=== PATIENT | male | born 2000 | race Caucasian/White ===

== ENCOUNTER 2021-08-16 10:39 | Emergency (ER) | payer OTHER ==
[~2021-08-16] VITALS: Ht 175.3 cm; Wt 123.0 kg
[~2021-08-16 10:39] MED LIST: ATEN50TA PO; LEVO25TA4 PO
[2021-08-16] MEDS ORDERED: KETOROLAC 15 MG/ML VIAL. IVP ONE (11:30)
[2021-08-16] MEDS ORDERED: IOHEXOL 300 MG/ML 75 ML VIAL. IV ONE (11:30)
[2021-08-16] MEDS ORDERED: CONTRAST GIVEN. MC PRN (11:30)
--- NOTE | 2021-08-16 11:33 | PHYS DOC ---
Past History Past Medical History: Other Past Surgical History: No Surgical History Smoking: Non-smoker Alcohol Use: None Drug Use: None General Adult EDM: Chief Complaint: RIB PAIN HPI: HPI: Patient is a 21-year-old male coming in for right flank pain. Patient states the pain was there when he woke up 2 days ago. Denies any strenuous activities, trauma, falls or heavy lifting. Patient states the pain is worse with movement and palpation. Denies any vomiting, urinary complaints, fevers, or cough. Denies any abdominal surgical history. Review of Systems: Review of Systems: All other systems within normal limits except for as noted in the HPI Current Medications: Current Meds: Current Medications Medications (Trade) Dose Ordered Sig/Derrell Start Time Stop Time Status Last Admin Dose Admin Info (Do NOT chart on this entry -- for MONITORING) 1 each PRN DAILY PRN 08/16/21 11:30 08/18/21 11:29 Iohexol (Omnipaque 300 Mg/ml) 75 ml 1X ONCE 08/16/21 11:30 08/16/21 11:31 Allergies: Allergies: Allergies Coded Allergies Type Severity Reaction Last Updated Verified No Known Drug Allergies 12/27/15 No Physical Exam: PE: Constitutional: Well developed, well nourished, no acute distress, non-toxic appearance. [] HENT: Normocephalic, atraumatic, bilateral external ears normal, nose normal. [] Eyes: PERRLA, conjunctiva normal, no discharge. [] Neck: No rigidity, supple, no stridor. [] Cardiovascular: Regular rate and rhythm, brisk cap refill [] Lungs & Thorax: Non labored symmetric respirations, no tachypnea or respiratory distress [] Abdomen: Soft, nondistended, right upper quadrant tenderness and positive Cisneros sign Skin: Warm, dry, no erythema, no rash. [] Back: Unremarkable, no CVA tenderness Extremities: No deformities, range of motion grossly intact, no lower extremity edema [] Neurologic: Alert and oriented X 3, no focal deficits noted. [] Psychologic: Affect normal, judgement normal, mood normal. [] EKG: EKG: [] Radiology/Procedures: Radiology/Procedures: [address] [address] IMAGING REPORT Signed PATIENT: OSBALDO HALL ACCOUNT: [id number] : 2000 LOCATION: ER AGE: 21 SEX: M EXAM STATUS: REG ER ORD. PHYSICIAN: LILLIANA RAMIREZ MD REASON: RUQ pain PROCEDURE: CT ABD PELV W/ IV CONTRST ONLY Study: CT abdomen/pelvis with intravenous contrast Indication: Right upper quadrant pain. Comparison: None. Technique: Helical CT imaging performed of the abdomen and pelvis after the intravenous administration of 75 cc contrast. Sagittal and coronal reformats were obtained. One or more of the following individualized dose reduction techniques were utilized for this examination: 1. Automated exposure control 2. Adjustment of the mA and/or kV according to patient size 3. Use of iterative reconstruction technique. Findings: No significant finding at the lower chest. Within normal limits liver, gallbladder, biliary tree, pancreas and adrenal glands. Mild enlargement of the spleen measuring 15.3 cm longitudinal. Symmetric renal parenchymal enhancement. No stone or hydronephrosis. Unremarkable bladder considering incomplete distention. The prostate is normal in size. Unremarkable colon and appendix. No pathologic dilatation of small bowel. Within normal limits stomach. Nonaneurysmal abdominal aorta. No lymphadenopathy by size criteria. No free fluid or pneumoperitoneum. No acute abnormality of the body wall soft tissues. No acute or aggressive osseous process. Impression: 1. No acute abnormality identified throughout the abdomen or pelvis. In the setting of reported right upper quadrant pain the gallbladder exhibits a normal CT appearance. 2. Mild splenic enlargement measuring 15.3 cm longitudinal. Electronically signed by: ARJUN CORRAL MD (08/16/2021 11:57 AM) [id number] DICTATED AND SIGNED BY: ARJUN CORRAL MD DATE: 08/16/21 1152 CC: LILLIANA RAMIREZ MD; NON,STAFF ~ [] Heart Score: C/O Chest Pain: No Risk Factors: Risk Factors: DM, Current or recent (<one month) smoker, HTN, HLP, family history of CAD, obesity. Risk Scores: Score 0 - 3: 2.5% MACE over next 6 weeks - Discharge Home Score 4 - 6: 20.3% MACE over next 6 weeks - Admit for Clinical Observation Score 7 - 10: 72.7% MACE over next 6 weeks - Early Invasive Strategies Course & Med Decision Making: Course & Med Decision Making Pertinent Labs and Imaging studies reviewed. (See chart for details) [] John Disclaimer: Dragtc Disclaimer: This electronic medical record was generated, in whole or in part, using a voice recognition dictation system. Departure Departure: Impression: Primary Impression: Rib pain on right side Disposition: HOME / SELF CARE / HOMELESS Condition: STABLE Referrals: NON,STAFF (PCP) Patient Instructions: Chest Wall Pain, [id number] Scripts Ibuprofen (IBUPROFEN) 800 Mg Tablet 1 TAB PO TID PRN for PAIN, #30 TAB Prov: LILLIANA RAMIREZ MD 08/16/21 LILLIANA RAMIREZ MD Aug 16, 2021 11:33
--- NOTE | 2021-08-16 12:00 | RAD ---
Study: CT abdomen/pelvis with intravenous contrast Indication: Right upper quadrant pain. Comparison: None. Technique: Helical CT imaging performed of the abdomen and pelvis after the intravenous administratio n of 75 cc contrast. Sagittal and coronal reformats were obtained. One or more of the following individualized dose reduction techniques were utilized for this examinat ion: 1. Automated exposure control 2. Adjustment of the mA and/or kV according to patient size 3. Use of iterative reconstruction technique. Findings: No significant finding at the lower chest. Within normal limits liver, gallbladder, biliary tree, pancreas and adrenal glands. Mild enlargement of the spleen measuring 15.3 cm longitudinal. Symmetric renal parenchymal enhancement. No stone or hy dronephrosis. Unremarkable bladder considering incomplete distention. The prostate is normal in size. Unremarkable colon and appendix. No pathologic dilatation of small bowel. Within normal limits stomac h. Nonaneurysmal abdominal aorta. No lymphadenopathy by size criteria. No free fluid or pneumoperitoneum . No acute abnormality of the body wall soft tissues. No acute or aggressive osseous process. Impression: 1. No acute abnormality identified throughout the abdomen or pelvis. In the setting of reported righ t upper quadrant pain the gallbladder exhibits a normal CT appearance. 2. Mild splenic enlargement measuring 15.3 cm longitudinal. Electronically signed by: ARJUN CORRAL MD (08/16/2021 11:57 AM) [id number]
[2021-08-16 12:25] LABS: BASO # 0.1 x10^3/uL (0.0-0.2); BASO % 1 % (0-3); EOS # 0.1 x10^3/uL (0.0-0.7); EOS % 1 % (0-3); HEMATOCRIT 46.7 % (39.0-53.0); HEMOGLOBIN 15.9 g/dL (13.0-17.5); LYMPH # 2.5 x10^3/uL (1.0-4.8); LYMPH % 24 % (24-48); MEAN CORPUSCULAR HEMOGLOBIN 31 pg (25-35); MEAN CORPUSCULAR HGB CONC 34 g/dL (31-37); MEAN CORPUSCULAR VOLUME 90 fL (79-100); MONO # 0.9 x10^3/uL (0.0-1.1); MONO % 9 % (0-9); NEUT # 6.8 x10^3uL (1.8-7.7); NEUT % 66 % (31-73); PLATELET COUNT 279 x10^3/uL (140-400); RED CELL DISTRIBUTION WIDTH 12.8 % (11.5-14.5); WHITE BLOOD COUNT 10.4 x10^3/uL (4.0-11.0)
[2021-08-16 12:34] LABS: CALCIUM 9.1 mg/dL (8.5-10.1); CREATININE 1.2 mg/dL (0.7-1.3); GFR 76.4; POTASSIUM 3.4 mmol/L (3.5-5.1)
[2021-08-16 12:39] LABS: TOTAL BILIRUBIN 1.3 mg/dL (0.2-1.0)
[2021-08-16 12:58] LABS: CLARITY,URINE CLEAR; COLOR,URINE YELLOW; GLUCOSE,URINE NEG (NEG); NITRITE,URINE NEG (NEG); UROBILINOGEN,URINE 0.2 mg/dL (0.2 mg/dL)
[2021-08-16 12:59] LABS: BACTERIA,URINE 0 /HPF (0-FEW); RBC,URINE OCC /HPF (0-2); SQUAMOUS EPITHELIAL CELL,UR OCC /LPF; WBC,URINE 0 /HPF (0-4)
[2021-08-16] MEDS ORDERED: IBUP800T19 PO (13:19)
[2021-08-16 13:35] VITALS: BP 126/68
== END 2021-08-16 13:35 | disposition home or self-care (01) ==
LOC: ER 10:39
DX: R07.81 Pleurodynia (principal); R10.11 Right upper quadrant pain
CPT/HCPCS: 36415; 74177; 80053; 81001; 83690; 85025; 96374; 99285; J1885; Q9967